=== PATIENT | male | born 1985 | race Two or more races ===

== ENCOUNTER → 2025-04-22 | Outpatient (CLI) | payer MEDICAID, SELFPAY ==
--- NOTE | 2025-04-22 12:30 | XR_ITS ---
Examination: Ultrasound liver elastography Date and time: April 22, 2025 1243 hours INDICATIONS: Epigastric pain hyperlipidemia metabolic syndrome symptoms 4 months TECHNIQUE AND FINDINGS: Sonographic images of the liver Liver 15.8 cm with fatty infiltration Normal hepatopedal portal venous oh Hepatic veins are open Tissue stiffness average 1.36 m/s in the normal to mild liver fibrosis stage IMPRESSION: Normal to mild liver fibrosis
== END | disposition home or self-care (01) ==
LOC: CDIM 12:17
PROVIDERS: PCP Physician Assistant; Referring Provider Physician Assistant; Visit Provider Physician Assistant
DX: K74.00 Hepatic fibrosis, unspecified (principal)
CPT/HCPCS: 76981